=== PATIENT | female | born 1950 | race American Indian/Alaskan Native ===

== ENCOUNTER 2017-05-08 17:16 | Inpatient (IN) | payer MEDICARE, OTHER ==
--- NOTE | 2017-05-08 17:50 | ED Physician Chart ---
ED Chief Complaint/HPI - Patient Information Date Seen:: 05/08/17 Time Seen:: 17:30 Chief Complaint:: leg weakness History of Present Illness:: Patient's had progressively increasing weakness of both legs for the last 6 months. She's had redness of both lower legs for last 3-4 months. No recent chills or fever. Patient had cervical spine surgery possibly at the level of the fourth cervical vertebrae one year ago. For the last one year patient has been using a walker at home and a motorized wheelchair when she goes out. Patient had left hip pain for the last 1-1/2 years. Patient has been taking 5 regular aspirin 2-3 times a day. Patient denies tinnitus. Allergies:: Allergies Allergy/AdvReac Type Severity Reaction Status Date / Time No Known Allergies Allergy Verified 05/08/17 17:28 Vitals:: Vital Signs - 8 hr 05/08/17 17:29 Temp 97.3 F HR 96 RR 17 BP 150/63 O2 Sat % 100 Historian:: Patient Review:: Nurse's Note Reviewed ED Review of Systems - Review of Systems General/Constitutional: No fever, No chills Skin: Skin lesions Head: No headache Eyes: No loss of vision ENT: No earache Neck: No neck pain Cardio Vascular: No chest pain, No palpitations Pulmonary: No SOB GI: No nausea, No vomiting G/U: Other (urinary incontinence for the last 2 years worse the last 4-5 months) Musculoskeletal: Bone or joint pain Endocrine: No polyuria, No polydipsia Psychiatric: No prior psych history Hematopoietic: No bruising Allergic/Immuno: No urticaria Neurological: No syncope, No focal symptoms ED Past Medical History - Past Medical History Past Medical History: Other (edema of the lower extremities and left hip pain for last one half years) Family History: Diabetes Melitus Social History: Non Smoker, No Alcohol Surgical History: other (cervical spine) Psychiatricy History: None Medication: Reviewed Family Medical History - Family Member Father Ethnicity: Non- Hx Family Diabetes: Yes ED Physical Exam - Physical Examination General/Constitutional: Well-developed, well-nourished, Alert, No distress Head: Atraumatic Eyes: Lids, conjuctiva normal, PERRL Other Skin comments:: Redness distal 2/3 of both lower legs; 2 out of 4 pretibial pitting edema. ENMT: External ears, nose nl Neck: No nuchal rigidity Respiratory: Nl effort/Exclusion, Clear to Auscultation Cardio Vascular: RRR, No murmur, gallop, rubs Other Cardio Vascular comments:: Heart sounds are faint GI: No tenderness/rebounding/guarding, No organomegaly : No CVA tenderness Other Extremities comments:: see above under skin Neuro/Psych: No focal deficits ED Labs/Radiology/EKG Results - Lab Results Results: Laboratory Results - last 24 hr 05/08/17 05/08/17 05/08/17 17:47 17:47 17:47 WBC 10.3 RBC 4.84 Hgb 14.4 Hct 43.7 MCV 90.4 MCH 29.8 MCHC Differential 32.9 RDW 13.5 Plt Count 251 MPV 8.6 Neutrophils % 58.0 Lymphocytes % 30.4 Monocytes % 7.9 Eosinophils % 2.8 Basophils % 0.9 PT 9.5 INR 0.91 PTT (Actin FS) 22.1 L Sodium 136 Potassium 4.1 Chloride 104 Carbon Dioxide 29.6 Anion Gap 6.5 L BUN 18 Creatinine 0.6 Est GFR ( Amer) > 60.0 Est GFR (Non-Af Amer) > 60.0 BUN/Creatinine Ratio 30.0 Glucose 103 Calcium 8.9 Total Bilirubin 0.4 AST 18 ALT 24 Alkaline Phosphatase 88 Total Protein 6.8 Albumin 3.4 L Globulin 3.4 Albumin/Globulin Ratio 1.0 Salicylates 05/08/17 17:47 WBC RBC Hgb Hct MCV MCH MCHC Differential RDW Plt Count MPV Neutrophils % Lymphocytes % Monocytes % Eosinophils % Basophils % PT INR PTT (Actin FS) Sodium Potassium Chloride Carbon Dioxide Anion Gap BUN Creatinine Est GFR ( Amer) Est GFR (Non-Af Amer) BUN/Creatinine Ratio Glucose Calcium Total Bilirubin AST ALT Alkaline Phosphatase Total Protein Albumin Globulin Albumin/Globulin Ratio Salicylates 81.9 - Radiology Results Results: Chest x-ray showed cardiomegaly and AP of the pelvis showed arthritis of the left hip. Venous doppler negative for DVT. - EKG Interpretations Rate & Rhythm: normal sinus rhythm with a rate of 87 Knapp: left axis deviation Comments:: Right bundle-branch block ED Assessment - Assessment General Assessment: The fact that the patient is taking 10-15 adult aspirin every day suggests to me that the patient is in severe pain. I spoke to Dr. Raymond and patient will be admitted. ED Septic Shock - . Is Septic Shock (SBP<90, OR Lactate>4 mmol\L) present?: No - <6hrs of presentation: Vital Signs: Vital Signs - 8 hr 05/08/17 17:29 Temp 97.3 F HR 96 RR 17 BP 150/63 O2 Sat % 100 ED Reassessment (Disposition) - Reassessment Reassessment:: Lower extremity cellulitis; arthritis left hip; possible aspirin toxicity
[2017-05-08 17:53] LABS: % BASOPHILS 0.9 % (0.0-2.0); % EOSINOPHILS 2.8 % (0.0-5.0); % LYMPHOCYTES 30.4 % (20.0-50.0); % MONOCYTES 7.9 % (2.0-10.0); HEMATOCRIT 43.7 % (41.0-60); HEMOGLOBIN 14.4 gm/dL (12-16); MEAN CELL VOLUME 90.4 fl (81-100); MEAN CORPUSCULAR HEMOGLOBIN 29.8 pg (27.0-31.0); MEAN CORPUSCULAR HGB CONC 32.9 pg (28.0-36.0); MEAN PLATELET VOLUME 8.6 fl; PLATELET COUNT 251 Th/cmm (150-400); RED BLOOD COUNT 4.84 Mil/cmm (3.80-5.20); RED CELL DISTRIBUTION WIDTH 13.5 % (11.5-20.0); WHITE BLOOD COUNT 10.3 Th/cmm (4.8-10.8)
[2017-05-08 18:05] LABS: INR 0.91 (0.5-1.4); PROTHROMBIN TIME (TEST) 9.5 SECONDS (9.5-11.5)
[2017-05-08 18:09] LABS: ALKALINE PHOSPHATASE 88 U/L (34-104); ANION GAP 6.5 (7.0-16.0); BILIRUBIN,TOTAL 0.4 mg/dL (0.3-1.0); BUN - UREA NITROGEN 18 mg/dL (7-25); CALCIUM SERUM 8.9 mg/dL (8.6-10.3); CARBON DIOXIDE 29.6 mEq/L (21.0-31.0); CHLORIDE 104 mEq/L (98-107); CREATININE - SERUM 0.6 mg/dL (0.6-1.2); GLUCOSE 103 mg/dL (70-105); POTASSIUM SERUM 4.1 mEq/L (3.5-5.1); SGOT 18 U/L (13-39); SGPT/ALT 24 U/L (7-52); SODIUM SERUM 136 mEq/L (136-145)
[2017-05-08 23:19] VITALS: BP 138/63
[2017-05-09] MEDS: Hydrocodone/APAP 5mg/325mg Tab PO PRN ×2 (03:01→08:16)
[2017-05-09 05:38] LABS: % BASOPHILS 0.4 % (0.0-2.0); % LYMPHOCYTES 26.4 % (20.0-50.0); % MONOCYTES 7.5 % (2.0-10.0); % NEUTROPHILS 62.7 % (40.0-80.0); HEMATOCRIT 44.7 % (41.0-60); HEMOGLOBIN 14.7 gm/dL (12-16); MEAN CELL VOLUME 89.2 fl (81-100); MEAN CORPUSCULAR HEMOGLOBIN 29.4 pg (27.0-31.0); MEAN PLATELET VOLUME 8.9 fl; NEUTROPHILE ABSOLUTE 7.3 Th/cmm (1.8-8.0); PLATELET COUNT 286 Th/cmm (150-400); RED BLOOD COUNT 5.01 Mil/cmm (3.80-5.20); RED CELL DISTRIBUTION WIDTH 13.6 % (11.5-20.0); WHITE BLOOD COUNT 11.7 Th/cmm (4.8-10.8)
[2017-05-09 05:54] LABS: ALKALINE PHOSPHATASE 87 U/L (34-104); ANION GAP 5.7 (7.0-16.0); BILIRUBIN,TOTAL 0.3 mg/dL (0.3-1.0); BUN - UREA NITROGEN 16 mg/dL (7-25); BUN/CREATININE RATIO 22.9; CALCIUM SERUM 8.5 mg/dL (8.6-10.3); CARBON DIOXIDE 30.3 mEq/L (21.0-31.0); CHLORIDE 103 mEq/L (98-107); CHOLESTEROL 142 mg/dL (<200); CREATININE - SERUM 0.7 mg/dL (0.6-1.2); GLUCOSE 131 mg/dL (70-105); MAGNESIUM 1.9 mg/dL (1.9-2.7); SGOT 19 U/L (13-39); SGPT/ALT 22 U/L (7-52); SODIUM SERUM 135 mEq/L (136-145); TRIGLYCERIDES 137 mg/dL (<150)
--- NOTE | 2017-05-09 07:28 | Diagnostic Imaging Report ---
Portable chest x-ray HISTORY: Shortness of breath Prior exams are not available for comparison. The heart is enlarged. Atherosclerotic calcification seen in the aorta. There is a degree of pulmonary vascular redistribution that may be associated with marginal cardiac decompensation. No focal pulmonary processes. No other hilar or mediastinal abnormalities. Diffuse degenerative changes are seen through the spine. Surgical changes noted within the cervical spine. IMPRESSION: 1. Cardiomegaly with atherosclerotic vascular changes. Marginal congestive heart failure cannot be excluded. No sergo pulmonary edema. 2. No focal pulmonary processes
--- NOTE | 2017-05-09 07:28 | Diagnostic Imaging Report ---
Pelvis (single view) HISTORY: Pain The exam of the left hip demonstrates severe narrowing with virtual complete obscuration of the weightbearing portion of the joint space. Severe joint space narrowing noted about the right hip. Severe degenerative changes noted in the visualized lower lumbar spine. No acute bony abnormalities. IMPRESSION: 1. Severe degenerative changes about the hips and lower lumbar spine.
--- NOTE | 2017-05-09 07:29 | Diagnostic Imaging Report ---
Bilateral lower extremity Doppler venous ultrasound exam HISTORY: Pain/swelling Sonographic sector images were obtained through the deep venous systems of both legs. Associated Doppler data was obtained. The exam demonstrates patency of the common femoral, superficial femoral, popliteal, and posterior tibial veins bilaterally. Specifically, no thrombus is seen. There are normal compressibility and augmentation responses. IMPRESSION: Negative exam for deep vein thrombophlebitis.
[2017-05-09] MEDS: Potassium Chloride 10 mEq ER Tab PO SCH (08:16)
--- NOTE | 2017-05-09 12:21 | History & Physical ---
ADMIT DATE: 05/09/2017 CHIEF COMPLAINT: Bilateral lower extremity weakness, swelling, and erythema. HISTORY OF PRESENT ILLNESS: A 67-year-old female with history of OA and DJD who underwent cervical orthopedic surgery in May of last year and has been diagnosed with left hip osteoarthritis, Patient presented to the ER with the above-mentioned symptoms, and states that she has had leg swelling and redness for about 6 months and has gradually gotten worse. She does not follow with any primary care doctor and is mostly inactive during the day. She uses a walker and wheelchair to get around. She states that she also had tactile fever and chills for the last week or so. Pertinent findings on admission include a duplex venous ultrasound, which was negative for DVT. She also had pelvic x-ray showing severe DJD changes in the hip and lumbar spine. The patient has been admitted to the medical floor for further management and care. PAST MEDICAL HISTORY: Also reports incontinence. PAST SURGICAL HISTORY: As noted above. FAMILY HISTORY: Essentially was negative. SOCIAL HISTORY: No tobacco, ETOH or illicit drug use. The patient lives at home with family. ALLERGIES: NKDA. MEDICATIONS: She takes aspirin 325 three times a day. REVIEW OF SYSTEMS: CONSTITUTIONAL: Fever and chills for 1 day. No recent weight loss. CARDIAC: No chest pain or palpitations. PULMONARY: No cough. No shortness of breath. No phlegm production. GASTROINTESTINAL: No bowel habit changes. GENITOURINARY: Denies any hematuria or UTI symptomatology. NEUROLOGIC: No changes in vision. No headaches, no syncopal episodes. No vertigo-like symptoms. PHYSICAL EXAMINATION: VITAL SIGNS: Temperature 97.6, pulse 90, respirations 18, BP 155/85, satting 92% on room air. GENERAL: Well-developed, moderately obese female, not in acute distress. Awake, alert and oriented x 3. HEAD AND NECK: Normocephalic and atraumatic. Pupils reactive to light. Extraocular movements are intact. Oropharynx is moist and clear. CARDIOVASCULAR: Regular rate and rhythm without any murmurs. LUNGS: Decreased at the bases, but clear to auscultation bilaterally. ABDOMEN: Soft, supple, nontender, and nondistended. Normoactive bowel sounds. EXTREMITIES: On lower extremities, there is bilateral erythema up to the mid shins. It is warm to touch. No ulcers are noted, 2+ pedal pulses are palpated. NEUROLOGIC: Cranial nerves 2-12 are within normal limits. Full exam was not able to be done given that the patient cannot ambulate freely. LABORATORY DATA: CBC within normal limits. INR 0.91. Chemistry was essentially within normal limits with an anion gap of 6.5. Albumin 3.4. TSH within normal limits. Salicylate level 81. DIAGNOSTICS: Please refer to HPI. IMPRESSION: 1. Bilateral lower extremity cellulitis. 2. Bilateral lower extremity edema, likely dependent. 3. Severe left hip osteoarthritis. 4. Severe lower back osteoarthritis. 5. History of cervical spine surgery, possibly at the C4 level. 6. Hypertension. 7. Hypoxia-will get ABG and will place her on supplemental O2. CXR in am. PLAN: The patient has been admitted to the medical/surgical floor for management and care. She has been placed on Lasix IV push daily and vancomycin IV. The patient also has been started on Celebrex daily. For her hypertension, I also placed the patient on lisinopril 10 mg daily. An MRI will be asked for the left hip as well as an Ortho eval. PT eval will also be ordered as well. JOB# [id number] TERE
[2017-05-09 14:18] LABS: pH 7.38 (7.35-7.45)
[2017-05-09 14:20] LABS: ABG SOURCE Arterial; ALLEN TEST YES; BE(B) 8.9 mEq/L (-3.0-3.0); FIO2 21; HCO3 31.7 mEq/L (20.0-26.0)
[2017-05-09] MEDS: Albuterol/Ipratropium Neb 3 ML AERS HHN SCH ×3 (14:31→19:01)
[2017-05-09] MEDS: Vancomycin HCl 1.5 GM in Sodium Chloride 0.9% 500 ML IV SCH (14:37)
[2017-05-09] MEDS ORDERED: VTE Chemical Prophylaxis Screen/Admission MC PRN (15:42)
--- NOTE | 2017-05-09 16:43 | Cardiology ---
05/09/[address] Ram. M-MODE ECHOCARDIOGRAM: Mitral valve, anterior leaflet of mitral valve shows normal excursion, EF velocity. Posterior leaflet of the mitral valve shows normal excursion. Left ventricular posterior wall shows increased thickness, normal excursion. Interventricular septum shows increased thickness, normal excursion, hypertrophy of the left ventricle, ejection fraction 55%. Left atrium normal. Aortic root shows normal dimension, normal excursion of aortic leaflets. CONCLUSION: Hypertrophy of the left ventricle, ejection fraction 55%. 2D ECHO: Long axis view showed normal sized left ventricle with hypertrophy of the left ventricle. Left atrium normal. Aortic root shows normal dimension, normal excursion of aortic leaflets. Short axis view of mitral valve normal. Short axis aortic valve normal. Apical four chamber view showed normal sized left ventricle with hypertrophy of the left ventricle. Left atrium normal. Right ventricular cavity, right atrium normal, no pericardial effusion. CONCLUSION: Hypertrophy of the left ventricle, ejection fraction 55%. Doppler study shows mild mitral regurgitation. Mild tricuspid regurgitation. Mild aortic regurgitation. [facility]# [id number]
[2017-05-10] MEDS: Vancomycin HCl 1.5 GM in Sodium Chloride 0.9% 500 ML IV SCH ×2 (02:12→17:11)
[2017-05-10 05:41] LABS: % BASOPHILS 0.3 % (0.0-2.0); % EOSINOPHILS 2.3 % (0.0-5.0); % LYMPHOCYTES 32.9 % (20.0-50.0); % MONOCYTES 7.5 % (2.0-10.0); MEAN CELL VOLUME 89.6 fl (81-100); MEAN CORPUSCULAR HEMOGLOBIN 29.7 pg (27.0-31.0); MEAN CORPUSCULAR HGB CONC 33.2 pg (28.0-36.0); MEAN PLATELET VOLUME 8.5 fl; NEUTROPHILE ABSOLUTE 6.5 Th/cmm (1.8-8.0); PLATELET COUNT 290 Th/cmm (150-400); RED BLOOD COUNT 4.25 Mil/cmm (3.80-5.20); RED CELL DISTRIBUTION WIDTH 13.6 % (11.5-20.0); WHITE BLOOD COUNT 11.3 Th/cmm (4.8-10.8)
[2017-05-10 05:42] LABS: HEMOGLOBIN 12.6 gm/dL (12-16)
[2017-05-10 05:56] LABS: ANION GAP 3.5 (7.0-16.0); BUN - UREA NITROGEN 39 mg/dL (7-25); BUN/CREATININE RATIO 55.7; CALCIUM SERUM 8.5 mg/dL (8.6-10.3); CARBON DIOXIDE 34.1 mEq/L (21.0-31.0); CHLORIDE 104 mEq/L (98-107); CREATININE - SERUM 0.7 mg/dL (0.6-1.2); GLUCOSE 131 mg/dL (70-105); MAGNESIUM 2.1 mg/dL (1.9-2.7); POTASSIUM SERUM 4.6 mEq/L (3.5-5.1); SODIUM SERUM 137 mEq/L (136-145)
[2017-05-10] MEDS ORDERED: Albuterol/Ipratropium Neb 3 ML AERS HHN PRN (07:00)
[2017-05-10] MEDS: Potassium Chloride 10 mEq ER Tab PO SCH (08:42)
[2017-05-10] MEDS ORDERED: Fleet Enema 135 mL RC ONE (13:29)
[2017-05-10] MEDS: Azithromycin 500 MG in Sodium Chloride 0.9% 250 ML IV SCH (13:47)
[2017-05-10] MEDS: methylPREDNISolone SS 40 mg Vial IVP SCH ×2 (13:47→21:03)
[2017-05-10] MEDS ORDERED: Probiotic Screen MC PRN (14:21)
[2017-05-10] MEDS: Hydrocodone/APAP 5mg/325mg Tab PO PRN (20:45)
[2017-05-11] MEDS: Vancomycin HCl 1.5 GM in Sodium Chloride 0.9% 500 ML IV SCH ×2 (03:58→14:14)
[2017-05-11] MEDS: methylPREDNISolone SS 40 mg Vial IVP SCH ×2 (06:09→13:40)
--- NOTE | 2017-05-11 08:24 | Diagnostic Imaging Report ---
Exam: CT examination of the chest HISTORY COPD Total DLP equals 441 CTDI equals 10.9 Findings: Multiple contiguous thin section of the chest were obtained from thoracic outlet to the upper abdomen without the administration of contrast material. No prior studies available comparison. The study demonstrates normal appearance of the great vessels of the neck. There is no evidence of abnormal adenopathy but difficult to appreciated without contrast material. Mediastinal structures midline the heart is not enlarged. No abnormal adenopathy is noted. The lung parenchyma is well aerated bilaterally. Bony structures demonstrate no evidence for lytic or blastic lesions. The visualized upper abdomen is intact. Mild atherosclerotic calcification of the aorta appreciated. IMPRESSION: Essentially unremarkable examination of the chest.
[2017-05-11] MEDS: Potassium Chloride 10 mEq ER Tab PO SCH (08:56)
[2017-05-11] MEDS: Azithromycin 500 MG in Sodium Chloride 0.9% 250 ML IV SCH (12:40)
--- NOTE | 2017-05-12 10:21 | Progress Notes ---
DATE: 05/11/2017 SUBJECTIVE: No acute events. The patient appears to be comfortable. She is refusing the IV vanco and prefers to take p.o. antibiotics. She also was telling staff last night that she wanted to leave against medical advice, but she was convinced to stay for ortho eval given that is still pending. Otherwise no acute events. OBJECTIVE: VITAL SIGNS: Temperature 97.0. She has been afebrile, pulse 105-111, respirations 18, blood pressure 104/54, satting 94% on 2 L. GENERAL: Not in acute distress. HEAD AND NECK: no jvd/lad CARDIAC: Regular rate with distant sounds. LUNGS: Diminished at the bases, but with increased lung air entry. ABDOMEN: Soft, supple, nontender, nondistended, normoactive bowel sounds. EXTREMITIES: On lower extremity, there is improving edema and improvement on her redness with mild erythema noted on both lower extremities. LABORATORY DATA: There are no labs for today. The patient refused. DIAGNOSTICS: There was a chest CT done showing essentially unremarkable examination of the chest. MRI of left hip--refused. ASSESSMENT: 1. Bilateral lower extremity edema and cellulitis improving, status post vancomycin IV, now on clindamycin p.o. 2. Severe osteoarthritis and degenerative joint disease on cervical/lumbar spine and left hip. Currently stable with pain meds, awaiting Orthopedics evaluation. 3. Likely chronic obstructive pulmonary disease. Continue with Zithromax and Solu-Medrol and wean as tolerated. 4. Essential hypertension. Continue with Zestril. 5. History of recent generilized chronic debility 2ry to #2. PLAN: The patient is to continue with current medications and treatment. We will ask for PT eval and we will await for Ortho eval. If Ortho is not able to see the patient, I will likely discharge the patient home tomorrow and have her follow Ortho as an outpatient for left hip osteoarthritis and worsening debility. JOB# [id number] TERE
--- NOTE | 2017-05-12 10:48 | Discharge Summary ---
DATE OF DISCHARGE: 05/11/2017 ADMITTING DIAGNOSES: 1. Bilateral lower extremity cellulitis. 2. Bilateral lower extremity edema, likely dependent edema. 3. Acute on chronic debility. 4. Severe left hip osteoarthritis. 5. Severe lower back osteoarthritis. 6. History of cervical spine djd-s/p ortho surgery at C4 level. 7. Hypoxia. 8. Morbid obesity. SECONDARY DIAGNOSES: History of chronic debility, wheelchair bound, left hip pain, chronic lower back pain/osteoarthritis, history of cervical spine surgery, s/p ortho surgery possible at the C4 level. Essential HTN, morbid obesity. CONSULTANTS: There were no consultants used during this admission. MAJOR PROCEDURES: Pelvic x-ray done on 05/08/2017 showed severe DJD about the hips and lower lumbar spine. There was a venous bilateral lower extremity duplex showing no evidence for deep vein thrombosis, this was done on 05/08/2017. A 2D echo done on 05/09/2017 showed hypertrophy of the left ventricle with an EF of 55%. A chest CT on 05/10/2017, shows essentially unremarkable examination of the chest. BRIEF HOSPITAL COURSE: A 67-year-old female with the above-mentioned diagnoses, namely severe OA and DJD with previous history of cervical orthopedic surgery last year, has been complaining of generalized weakness, immobility secondary to pain, and bilateral lower extremity swelling and erythema for about 6 months, more pronounced over the last few weeks. The patient underwent a duplex ultrasound and pelvic x-rays at the ER showing the above-mentioned findings. She was admitted for bilateral lower extremity cellulitis and was placed on IV vanco and other supportive care. The patient was noted to have a low sats by hospital day #2. Her sats were below 90 and therefore an ABG was ordered showing a pH of 7.38, pCO2 of 61, and pO2 of 62. The patient was placed on pulmonary supportive care and supplemental oxygen. Given her left hip pain, Ortho eval was placed for further management and care. However, on 05/10/2017, the patient complained about the vancomycin (itching) stating that she would prefer a p.o. medication. There were no noticeable adverse reactions such as rash. She was placed on clindamycin 600 mg t.i.d. The patient was also started on lisinopril 10 mg daily given elevated BP readings since admission. She was also given aspirin and Zithromax for presumed bronchitis/possible COPD with exacerbation. She was also given Solu-Medrol with improvement of her symptoms. The patient left AMA on 05/11/2017 without any medications prescribed. [facility]# [id number] MTDRima
== END 2017-05-11 16:00 | disposition left against medical advice (07) | DRG 603 ==
LOC: ER 17:16 → MSI 19:05
PROVIDERS: ADMIT Internal Medicine; ATTEND Internal Medicine
DX: L03.116 Cellulitis of left lower limb (principal); J96.11 Chronic respiratory failure with hypoxia; J44.1 Chronic obstructive pulmonary disease with (acute) exacerbation; Z68.41 Body mass index [BMI] 40.0-44.9, adult; I10 Essential (primary) hypertension; L03.115 Cellulitis of right lower limb; M16.12 Unilateral primary osteoarthritis, left hip; M47.816 Spondylosis without myelopathy or radiculopathy, lumbar region; E66.01 Morbid (severe) obesity due to excess calories; G89.29 Other chronic pain; Z53.21 Procedure and treatment not carried out due to patient leaving prior to being seen by health care provider; Z83.3 Family history of diabetes mellitus; Z99.3 Dependence on wheelchair
CPT/HCPCS: 36415-UA; 36600-90; 71010-TC; 71250-TC; 72170-TC; 80048-TC; 80053-TC; 80061-TC; 80202-TC; 80329-TC; 82803-TC; 83036-90; 83735-TC; 83880-TC; 84443-TC; 85025-TC; 85610-TC; 85652-TC; 85730-TC; 86141-TC; 93005; 93970-TC-50; 94640; 94760; J0456; J1644; J1940; J2405; J2920; J3370; J7040; Z7610